=== PATIENT | female | born 1995 | race Caucasian/White ===

== ENCOUNTER 2017-07-08 18:18 | Emergency (ER) | payer OTHER ==
[2017-07-08] MEDS: ACETAMINOPHEN/HYDROcodone 325 MG/5 MG TAB PO (22:48)
[2017-07-08] MEDS: IBUPROFEN 800 MG TAB PO (22:48)
== END 2017-07-08 22:49 | disposition home or self-care (01) ==
LOC: NEPK 18:18
DX: N75.1 Abscess of Bartholin's gland (principal)
CPT/HCPCS: 56420; 99283-25